=== PATIENT | male | born 1985 | race African-American/Black ===

== ENCOUNTER 2024-04-09 19:58 | Emergency (ER) | payer MEDICAID ==
[~2024-04-09] VITALS: Ht 177.8 cm; Wt 67.0 kg
[2024-04-09 20:11] VITALS: O2SAT 99
[2024-04-09] MEDS: CYCLOBENZAPRINE 10MG TABLET PO ONE (21:33)
[2024-04-09] MEDS: KETOROLAC 30MG/ML VIAL IM ONE (21:34)
[2024-04-09 22:05] VITALS: BP 114/76; PULSE 59; RESP 18; TEMP 98.2
[2024-04-09] MEDS ORDERED: NAPR-1176 MT (22:07)
[2024-04-09] MEDS ORDERED: CYCL10TA21 MT (22:07)
== END 2024-04-09 22:05 | disposition home or self-care (01) ==
LOC: ER 19:58
DX: M54.2 Cervicalgia (principal); V49.9XXA Car occupant (driver) (passenger) injured in unspecified traffic accident, initial encounter; Y93.89 Activity, other specified; Y92.89 Other specified places as the place of occurrence of the external cause; Y99.8 Other external cause status
CPT/HCPCS: 99283; 71045; 96372; J1885

== ENCOUNTER 2025-01-04 11:34 | Emergency (ER) | payer MEDICAID ==
[~2025-01-04] VITALS: Ht 177.8 cm; Wt 70.3 kg
[~2025-01-04 11:34] MED LIST: CYCL10TA21 MT; NAPR-1176 MT
[2025-01-04 11:54] VITALS: TEMP 36.7; O2SAT 99
[2025-01-04] MEDS ORDERED: NAPR-681 MT (12:57)
[2025-01-04 13:10] VITALS: BP 114/79; PULSE 72; RESP 16
[2025-01-04] MEDS: KETOROLAC 30MG/ML VIAL IM ONE (13:10)
== END 2025-01-04 13:10 | disposition home or self-care (01) ==
LOC: ER 11:34
DX: M79.646 Pain in unspecified finger(s) (principal); Z79.1 Long term (current) use of non-steroidal anti-inflammatories (NSAID)
CPT/HCPCS: 73140; 96372; 99283; J1885; Z7610

== ENCOUNTER 2025-08-24 18:55 | Emergency (ER) | payer MEDICAID ==
[~2025-08-24] VITALS: Ht 175.3 cm; Wt 66.0 kg
[~2025-08-24 18:55] MED LIST changes: +NAPR-681 MT
[2025-08-24 19:14] VITALS: TEMP 36.8; O2SAT 98
[2025-08-24] MEDS ORDERED: LIDOCAINE HCL 1% 20ML VIAL INL ONE (20:45)
[2025-08-24] MEDS: TETANUS, DIPHTHERIA, PERTUSSIS VAC/PF 0.5ML (>10YR OLD) IM ONE (21:18)
[2025-08-24] MEDS: KETOROLAC 15MG/ML VIAL IM ONE (21:19)
[2025-08-25] MEDS ORDERED: [UNRECOGNIZED DRUG - CODE] TP (00:30)
[2025-08-25] MEDS ORDERED: CHLO473M13 MT (00:30)
[2025-08-25] MEDS ORDERED: IBUP-1455 MT (00:33)
[2025-08-25 01:01] VITALS: BP 92/65; PULSE 59; RESP 14; O2SAT 100
== END 2025-08-25 01:08 | disposition home or self-care (01) ==
LOC: ER 18:55
DX: S01.511A Laceration without foreign body of lip, initial encounter (principal); Z79.1 Long term (current) use of non-steroidal anti-inflammatories (NSAID); Y04.0XXA Assault by unarmed brawl or fight, initial encounter; Y93.89 Activity, other specified; Y92.89 Other specified places as the place of occurrence of the external cause; Y99.8 Other external cause status
CPT/HCPCS: 99284; 90715; 12013; 90471; 96372; J1885; J2003; 12002

== ENCOUNTER 2025-08-30 22:18 | Emergency (ER) | payer MEDICAID ==
[~2025-08-30] VITALS: Ht 177.8 cm; Wt 69.0 kg
[~2025-08-30 22:18] MED LIST changes: +CHLO473M13 MT; +IBUP-1455 MT; +[UNRECOGNIZED DRUG - CODE] TP
[2025-08-30 22:32] VITALS: TEMP 37.3; O2SAT 98
[2025-08-31] MEDS: IBUPROFEN 600MG TABLET PO ONE (00:09)
[2025-08-31 03:56] VITALS: BP 94/62; PULSE 64; RESP 14; O2SAT 100
== END 2025-08-31 04:03 | disposition home or self-care (01) ==
LOC: ER 22:50
DX: S02.2XXA Fracture of nasal bones, initial encounter for closed fracture (principal); S01.511D Laceration without foreign body of lip, subsequent encounter; Z79.1 Long term (current) use of non-steroidal anti-inflammatories (NSAID); Z79.899 Other long term (current) drug therapy; X58.XXXD Exposure to other specified factors, subsequent encounter; Y09 Assault by unspecified means; Y93.89 Activity, other specified; Y92.89 Other specified places as the place of occurrence of the external cause; Y99.8 Other external cause status
CPT/HCPCS: 70486; 99284

== ENCOUNTER 2025-09-10 01:30 | Emergency (ER) | payer MEDICAID ==
[~2025-09-10] VITALS: Ht 177.8 cm; Wt 77.0 kg
[2025-09-10 01:39] VITALS: O2SAT 97
[2025-09-10] MEDS ORDERED: MUPI1OIN4 TP (05:11)
[2025-09-10] MEDS ORDERED: SULF1TAB48 MT (05:11)
[2025-09-10 05:20] VITALS: BP 112/78; PULSE 64; RESP 10; TEMP 36.7; O2SAT 99
== END 2025-09-10 05:23 | disposition home or self-care (01) ==
LOC: ER 01:30
DX: L73.9 Follicular disorder, unspecified (principal); Z79.899 Other long term (current) drug therapy
CPT/HCPCS: 99283